=== PATIENT | male | born 1955 | race Caucasian/White ===

== ENCOUNTER 2019-08-22 17:33 | Emergency (ER) | payer MEDICAID ==
[~2019-08-22] VITALS: Ht 180.3 cm; Wt 84.1 kg
[2019-08-22] MEDS ORDERED: LORazepam 2 mg/ml vial IV ONE (17:45)
[2019-08-22] MEDS ORDERED: iohexol 350MG/ML 100ml bottle IV ONE (18:07)
--- NOTE | 2019-08-22 18:15 | NUR ---
IV ACCESS ESTABLISHED AND CT WAITING TO TAKE PT FOR PROCEDURE.
[2019-08-22 18:24] LABS: ALANINE AMINOTRANSFERASE 27 U/L (12-78); ALBUMIN 3.5 G/DL (3.4-5.0); ALBUMIN/GLOBULIN RATIO 0.9 (1.1-1.5); ALKALINE PHOSPHATASE 103 IU/L (46-116); ANION GAP 9 (8-16); ASPARTATE AMINO TRANSFERASE 12 U/L (10-37); BILIRUBIN,TOTAL 0.2 MG/DL (0.1-1.0); BLOOD UREA NITROGEN 19 MG/DL (7-18); BUN/CREATININE RATIO 17.1 (5.4-32.0); CALCIUM 8.7 MG/DL (8.5-10.1); CHLORIDE 107 MMOL/L (99-107); CREATININE 1.11 MG/DL (0.60-1.10); GLUCOSE 151 MG/DL (70-104); POTASSIUM 4.5 MMOL/L (3.5-5.1); SODIUM 141 MMOL/L (135-145); TOTAL CARBON DIOXIDE 25.5 MMOL/L (24-32); TOTAL PROTEIN 7.3 G/DL (6.4-8.2); eGFR 67 ML/MIN
[2019-08-22 18:31] LABS: MAGNESIUM 1.6 MG/DL (1.5-2.4)
[2019-08-22 18:32] LABS: ETHANOL < 0.010 GM/DL (0.0-0.010)
[2019-08-22 19:04] LABS: EOSINOPHILS # (AUTO) 0.3 X10'3 (0-0.9); HEMATOCRIT 44.8 % (42.0-52.0); HEMOGLOBIN 15.8 g/dl (14.0-17.9); LYMPHOCYTES # (AUTO) 2.3 X10'3 (1.1-4.8); MEAN CORPUSCULAR HEMOGLOBIN 32.1 PG (27.0-31.0); MEAN PLATELET VOLUME 10.1 FL (7.4-10.4); MONOCYTES # (AUTO) 0.5 X10'3 (0-0.9); NEUTROPHILS % (AUTO) 57.2 % (42-75); RED CELL DISTRIBUTION WIDTH 13.6 % (11.5-14.5)
[2019-08-22 19:06] LABS: BASOPHILS % (AUTO) 0.3 % (0-1); EOSINOPHILS % (AUTO) 4.7 % (0-6); LYMPHOCYTES % (AUTO) 31.5 % (21-51); MEAN CORPUSCULAR HGB CONC 35.3 g/dL (33.0-36.5); MEAN CORPUSCULAR VOLUME 91.1 FL (78-98); MONOCYTES % (AUTO) 6.3 % (2-12); NEUTROPHILS # (AUTO) 4.2 X10'3 (1.8-7.7); PLATELET COUNT 364 X10'3 (140-440); RED BLOOD COUNT 4.92 X10'6 (4.70-6.10); WHITE BLOOD COUNT 7.4 X10'3 (4.5-11.0)
[2019-08-22 19:08] LABS: LARGE PLATELETS FEW; PLATELET ESTIMATE NORMAL
[2019-08-22 19:12] LABS: URINE AMPHETAMINE SCREEN NEGATIVE (Neg); URINE BARBITUATE SCREEN NEGATIVE (Neg); URINE BENZODIAZEPINES SCREEN NEGATIVE (Neg); URINE CANNABINOID SCREEN NEGATIVE (Neg); URINE COCAINE SCREEN NEGATIVE (Neg); URINE METHADONE SCREEN NEGATIVE (Neg); URINE OPIATE SCREEN NEGATIVE (Neg); URINE PHENCYCLIDINE SCREEN NEGATIVE (Neg)
[2019-08-22 19:17] LABS: CLARITY,URINE CLEAR (Clear); COLOR,URINE YELLOW (Yellow); GLUCOSE, URINE 250 mg/dl (Neg); KETONES,URINE NEGATIVE (Neg); LEUKOCYTE ESTERASE ,URINE NEGATIVE (Neg); NITRITES, URINE NEGATIVE (Neg); OCCULT BLOOD,URINE NEGATIVE (Neg); PROTEIN,URINE NEGATIVE (Neg); UROBILINOGEN,URINE 0.2 E.U/dL (0.2-1.0)
[2019-08-22 19:19] LABS: UA COLLECTION TYPE URINAL
--- NOTE | 2019-08-22 20:00 | NUR ---
MD AT BEDSIDE TALKING WITH PT
[2019-08-22 20:29] VITALS: BP 143/93
== END 2019-08-22 20:31 | disposition home or self-care (01) ==
LOC: ER 17:35
DX: R07.89 Other chest pain (principal); R53.1 Weakness; R20.2 Paresthesia of skin; F17.200 Nicotine dependence, unspecified, uncomplicated
CPT/HCPCS: 36415; 70450; 71045; 71275; 74175; 80053; 80305; 80320; 81003; 83735; 83880; 84484; 85025; 93005; 96374; 99284; J2060; Q9967

== ENCOUNTER 2019-08-27 12:43 | Emergency (ER) | payer MEDICAID ==
[~2019-08-27] VITALS: Ht 180.3 cm; Wt 85.6 kg
[2019-08-27] MEDS ORDERED: ondansetron 4mg rapidly disintigrating tab PO ONE (14:00)
[2019-08-27 14:19] LABS: BASOPHILS # (AUTO) 0.1 X10'3 (0-0.2); BASOPHILS % (AUTO) 1.5 % (0-1); EOSINOPHILS # (AUTO) 0.2 X10'3 (0-0.9); EOSINOPHILS % (AUTO) 3.2 % (0-6); HEMATOCRIT 42.6 % (42.0-52.0); HEMOGLOBIN 14.8 g/dl (14.0-17.9); LYMPHOCYTES # (AUTO) 2.1 X10'3 (1.1-4.8); LYMPHOCYTES % (AUTO) 26.6 % (21-51); MEAN CORPUSCULAR HGB CONC 34.7 g/dL (33.0-36.5); MEAN CORPUSCULAR VOLUME 92.1 FL (78-98); MEAN PLATELET VOLUME 8.8 FL (7.4-10.4); MONOCYTES # (AUTO) 0.5 X10'3 (0-0.9); MONOCYTES % (AUTO) 6.8 % (2-12); NEUTROPHILS # (AUTO) 4.9 X10'3 (1.8-7.7); NEUTROPHILS % (AUTO) 61.9 % (42-75); PLATELET COUNT 315 X10'3 (140-440); RED BLOOD COUNT 4.63 X10'6 (4.70-6.10); RED CELL DISTRIBUTION WIDTH 13.1 % (11.5-14.5); WHITE BLOOD COUNT 7.8 X10'3 (4.5-11.0)
[2019-08-27 14:32] LABS: ALANINE AMINOTRANSFERASE 27 U/L (12-78); ALBUMIN 3.7 G/DL (3.4-5.0); ALKALINE PHOSPHATASE 92 IU/L (46-116); ANION GAP 9 (8-16); ASPARTATE AMINO TRANSFERASE 15 U/L (10-37); BILIRUBIN,TOTAL 0.2 MG/DL (0.1-1.0); BLOOD UREA NITROGEN 18 MG/DL (7-18); BUN/CREATININE RATIO 13.2 (5.4-32.0); CALCIUM 8.8 MG/DL (8.5-10.1); CHLORIDE 106 MMOL/L (99-107); CREATININE 1.36 MG/DL (0.60-1.10); GLUCOSE 146 MG/DL (70-104); SODIUM 142 MMOL/L (135-145); TOTAL CARBON DIOXIDE 27.3 MMOL/L (24-32); TOTAL PROTEIN 7.4 G/DL (6.4-8.2); eGFR 53 ML/MIN
[2019-08-27 15:03] VITALS: BP 160/69
[2019-08-27 16:08] LABS: OCCULT BLOOD STOOL POSITIVE (Neg)
== END 2019-08-27 15:02 | disposition home or self-care (01) ==
LOC: ER 12:44
DX: M79.671 Pain in right foot (principal); M79.672 Pain in left foot; K92.2 Gastrointestinal hemorrhage, unspecified
CPT/HCPCS: 36415; 80053; 82272; 82948; 85025; 99284

== ENCOUNTER 2019-09-09 17:13 | Emergency (ER) | payer MEDICAID ==
[~2019-09-09] VITALS: Ht 180.3 cm; Wt 82.0 kg
[2019-09-09] MEDS ORDERED: CEPH500C5 PO (18:21)
[2019-09-09 19:10] VITALS: BP 150/90
== END 2019-09-09 18:50 | disposition home or self-care (01) ==
LOC: ER 17:14
DX: L08.89 Other specified local infections of the skin and subcutaneous tissue (principal)
CPT/HCPCS: 99283